=== PATIENT | male | born 1995 | race Native Hawaiian/Other Pacific Islander ===

== ENCOUNTER 2019-02-27 10:41 | Outpatient (CLI) | payer OTHER ==
--- NOTE | 2019-03-03 15:08 | OP Clinic Progress Note ---
SUBJECTIVE: Fran Saavedra is a 23-year-old male who presented to clinic today for recurrent ingrown toenail of the left great toe, medial and lateral borders. The patient states that he has been on antibiotics twice and only the second time did it seem to make the infection go away some but he is worried that it is infected again. The pain has not gone away and he has not had treatment on this left great toe yet for the actual ingrown toenail itself. He states he had a permanent partial nail avulsion performed on the right great toe on I believe the medial border and has had no issues since and he would like to have the permanent procedure done on both the inside and outside of his left great toe where he is having pain. The patient admits that it has been infected recently and has not been on antibiotics for a little bit now. The patient does not admit to any fevers, chills, nausea, vomiting, shortness of breath or chest pain. OBJECTIVE: Vitals: Temperature 97.9 degrees Fahrenheit, heart rate 79, respiration rate 12, blood pressure 157/87. O2 saturation is 98% on room air. Vascular: 2+ DP and PT pulses, left foot. Capillary refill time is less than 3 seconds to the toes of the left foot. There is mild edema noted on both medial and lateral borders of the left great toenail, but especially on the lateral border. Dermatologic: There is obvious enlarged granulation tissue/slight paronychia noted on the lateral border of the left great toenail. There was also edema and overall slight erythema noted on the left great toe medial and lateral borders. The erythema perhaps is due to irritation but due to the history of admitted infection we will likely treat for infection as well just to be safe. The patient has no obvious purulence or malodor noted. Musculoskeletal: There is pain on palpation noted on the medial and lateral borders of the left great toenail. There is no other gross abnormalities noted, left foot. Neurologic: Light touch sensation is intact to the toes, left foot. ASSESSMENT AND PLAN: 1. Onychocryptosis, left hallux, medial and lateral borders. 2. Cellulitis of left hallux. Consent was discussed and obtained regarding a partial nail avulsion of the left great toenail medial and lateral borders with chemical matrixectomy on both. The patient understood that there were risks and benefits to the procedure that include but are not limited to bleeding and infection and the patient has agreed both by written and verbal consent to go forward with that procedure at this time and consent was signed and placed in the chart. PROCEDURE #1: An alcohol swab was utilized to cleanse the base of the left great toe. 6 mL of a 1:1 mix of 2% lidocaine plain and 0.5% Marcaine plain were injected into the base of the left great toe. Betadine prep was then applied and the toe exsanguinated of blood and a tourniquet applied at the base of the left great toe. The patient felt no pain at this time and we proceeded to perform a partial nail avulsion of the medial and lateral nail borders. The extra granulation tissue of the lateral border was also removed. At this time having confirmed that the nail was avulsed completely on both the medial and lateral borders, the site was rinsed with a copious amount of normal saline. At this time application of phenol in both medial and lateral borders were performed with a cotton tip applicator in increments of 45 seconds, 45 seconds, 30 seconds. At this time the tourniquet was removed and a prompt hyperemic response was noted to the left great toe and a moderate amount of bleeding ensued. At this time a copious amount of 70% isopropyl alcohol was applied to rinse out and dilute both sites of the procedure as well as the entire left great toe and left foot in order to be sure that all phenol was rinsed away. Pressure was applied for a long amount of time as well as silver nitrate and rinsing out the silver nitrate with normal saline until we had good hemostasis obtained on the medial and lateral borders of the left great toenail. At this time dressings were applied consisting of Silvadene, 4x4 gauze, 2-inch Brandon and 1-inch Coban beginning on the toe and extending onto the distal forefoot. The patient understands to leave this intact until tomorrow then he may remove it and do Epsom salts soak baths as long as he washes his foot first separately and then puts it into that to soak it. He may also shower as long as he washes his toe last and applies then antibiotic ointment and a Band-Aid once to twice daily until I see him next week. The patient has no questions or concerns and is given instructions both written and verbally today regarding care. The patient appreciated how well the procedure went today and was happy with it. Return to the clinic Monday, March 04, 2019 for follow-up and then 2 weeks later for additional follow-up to make sure it has healed. The patient understands this is the plan and has no further questions or concerns. Due to the recent infection I went ahead and prescribed Keflex 500 mg, 21 capsules, 1 capsule by mouth 3 times daily x7 days with no refills. This prescription hard copy was sent with the patient to fill on his own. The patient understood that he was getting the antibiotic for that reason. He had no further questions at this time. He knows that I will be out of town the through the and to report to primary care physician or ER if needed during that time. Tamiko Fernandez.P.M. (Dictated/Not Signed) Jeffrey Job #: [id number]
== END 2019-02-27 11:55 ==
LOC: POD 10:41
PROVIDERS: ATTEND Podiatrist Foot & Ankle Surgery
DX: L60.0 Ingrowing nail (principal); L03.032 Cellulitis of left toe
CPT/HCPCS: 11750; A4554